=== PATIENT | male | born 1980 | race Caucasian/White ===

== ENCOUNTER 2017-01-26 17:44 | Emergency (ER) | payer BC ==
[2017-01-26 18:55] VITALS: BP 153/100
--- NOTE | 2017-01-26 19:07 | UC ---
Dental HPI - HPI Summary HPI Summary: 36 y/o male presents to the urgent care c/o dental pain for the past 4 days. Pains is 9/10 now. He took Ibuprofen 400mg PO this morning with some relief. He states his RT upper jaw is swollen. He couldn't make an appt with his dentist today. He thinks he has a broken molar in his upper jaw. He has Hx of herniated disc on L1-L5 on Pain medication. Pt denies SOB, trismus, chest pain, abdominal pain, N/V/D. r - History of Current Complaint Chief Complaint: UCDentalProblem Stated Complaint: TOOTH COMPLAINT Time Seen by Provider: 01/26/17 18:57 Hx Obtained From: Patient Onset/Duration: Gradual Onset, Lasting Days - 4 days, Still Present, Worse Since - last night Severity: Severe Pain Intensity: 9 Pain Scale Used: 0-10 Numeric Aggravating Factor(s): Chewing Alleviating Factor(s): OTC Meds - Allergies/Home Medications Allergies/Adverse Reactions: Allergies Allergy/AdvReac Type Severity Reaction Status Date / Time raw onions Allergy See Comment Uncoded 01/26/17 18:55 Home Medications: Home Medications Oxycodone [Xtampza ER] 18 mg PO Q12H 01/26/17 [History Confirmed 01/26/17] oxyCODONE TAB* [Roxycodone TAB 5 mg*] 5 mg PO TID 01/26/17 [History Confirmed ] PMH/Surg Hx/FS Hx/Imm Hx Previously Healthy: Yes Neurological History: Seizures Other Neurological History: DDD - Surgical History Surgical History: Yes Surgery Procedure, Year, and Place: TONSILLECTOMY - Family History Known Family History: Positive: Cardiac Disease, Hypertension - Social History Occupation: Employed Full-time Lives: With Family Alcohol Use: Weekly Alcohol Amount: BEER ONCE A MONTH Substance Use Type: Excessive Caffeine, Prescribed Substance Use Comment - Amount & Last Used: monster drinks, 5 hr energy, sodas, coffee Smoking Status (MU): Current Every Day Smoker Type: Cigarettes Amount Used/How Often: 3-4 CIGS PER DAY Length of Time of Smoking/Using Tobacco: 19 YRS Have You Smoked in the Last Year: Yes When Did the Patient Quit Smoking/Using Tobacco: quit 12/14/15 Household Exposure Type: Cigarettes Review of Systems Constitutional: Negative Skin: Negative Eyes: Negative ENT: Dental Pain, Other - RT side face swelling Respiratory: Negative Cardiovascular: Negative Gastrointestinal: Negative Genitourinary: Negative Motor: Negative Neurovascular: Negative Musculoskeletal: Negative Neurological: Headache Psychological: Negative Is Patient Immunocompromised?: No All Other Systems Reviewed And Are Negative: Yes Physical Exam Triage Information Reviewed: Yes Vital Signs: Initial Vital Signs Temp 97.1 F 01/26/17 18:49 Pulse 59 01/26/17 18:49 Resp 16 01/26/17 18:49 BP 153/100 01/26/17 18:49 Pulse Ox 100 01/26/17 18:49 - Additional Comments Vital Signs Reviewed: Yes General: well developed. well nourished male sitting in the examining table w/o any apparent distress Eyes: Positive: Conjunctiva Clear - PERRLA, EOMI, fundi grossly normal ENT: Positive: Normal ENT inspection, Hearing grossly normal, Pharyngeal erythema, TMs normal, Uvula midline. Negative: Tonsillar swelling, Tonsillar exudate, Trismus Dental: Positive: Percussion Tenderness @ - molar 2 with cross decay and fractured. Positive B/L anterior Cervical Lymphadenopathy. No trismus. NO TMJ tenderness Neck: Positive: Supple, Nontender Respiratory: Positive: Chest non-tender, Lungs clear, Normal breath sounds, No respiratory distress Cardiovascular: Positive: RRR, No Murmur, Pulses Normal, Brisk Capillary Refill Abdomen Description: Positive: Nontender, No Organomegaly, Soft. Negative: CVA Tenderness (R), CVA Tenderness (L) Bowel Sounds: Positive: Present Musculoskeletal: Positive: Strength Intact, ROM Intact, No Edema Neurological Exam: Normal Psychological Exam: Normal Skin Exam: Normal Dental Complaint Course/Dx - Course Course Of Treatment: 36 y/o male presents to the urgent care c/o dental pain for the past 4 days. Pains is 9/10 now. He took Ibuprofen 400mg PO this morning with some relief. He states his RT upper jaw is swollen. He couldn't make an appt with his dentist today. He thinks he has a broken molar in his upper jaw. He has Hx of herniated disc on L1-L5 on Pain medication. Pt denies SOB, trismus , chest pain, abdominal pain, N/V/D. Hx obtained. Pt with a fractured w/ gross decay Molar #2 in the RT upper jaw and sorrounding swelling on examination. Possible dental abscess. Pt given viscous Lidocaine at the clinic to alleviate symptoms. Pt given a toradol IM inj for pain by Nurse. pt tolerated well Im inj and viscous Lidocaine topically and the rest dispense home. Pt felt better and pain decrease. Pt Rx Amoxicillin PO and Naproxen PO for pain. Pt strongly advised to f/u with Dentist as soon as possible further evaluation and treatment. Pt's BP is elevated today advised to decrease salt in diet, monitor BP and f/u with PCP for further management. Pt understood and agreed with plan of care. Left the clinic ambulating. - Differential Dx/Diagnosis Differential Diagnosis/Dx: Dental Abscess, Dental Caries, Fractured Tooth, Odontogenic Pain, Peridontic Disease, Peritonsillar Abcess Provider Diagnoses: 1- Dental abscess aroudn molar #2. 2- Fracture molar #2. 3 - Elevated BP w/o Hx of HTN Discharge - Discharge Plan Condition: Stable Disposition: HOME Prescriptions: Amoxicillin PO (*) [Amoxicillin 875 MG (*)] 875 mg PO BID #20 tab Naproxen [Naproxen DR 500 MG TAB] 500 mg PO Q8HR #30 tab Patient Education Materials: Dental Abscess (ED), Low Sodium Diet (ED) Referrals: Alfonso Linda MD [Medical Doctor] - 1 Day Additional Instructions: 1-Please take full course of antibiotic to avoid resistance. 2- Take Naproxen as instructed after meals to alleviate pain and swelling. 3- F/u with your Dentist or Dental List provided as soon as possible for further treatment. 4- If symptoms do not improve or worsen please return to the urgent care or f/u with your PCP for further evaluation and treatment 5- Your BP is elevated today. please decrease salt in your diet, monitor BP and if it continues to be elevated please f/u with your PCP for further management
[2017-01-26] MEDS ORDERED: Ketorolac INJ* 60 MG/2 ML VIAL IM ONE (19:09)
[2017-01-26] MEDS ORDERED: Lidocaine 2% VISCOUS* 15 ML UDC SWISH SPIT ONE (19:10)
== END 2017-01-26 19:40 | disposition home or self-care (01) ==
LOC: UCCORT 17:44
DX: K04.7 Periapical abscess without sinus (principal); S02.5XXA Fracture of tooth (traumatic), initial encounter for closed fracture; R03.0 Elevated blood-pressure reading, without diagnosis of hypertension
CPT/HCPCS: 99212; G0463; J1885

== ENCOUNTER 2017-07-19 17:40 | Emergency (ER) | payer BC ==
[2017-07-19 18:01] VITALS: BP 141/93
--- NOTE | 2017-07-19 18:15 | ED ---
Abdominal Pain/Male - HPI Summary HPI Summary: 36 yr old male with the complaint of abdominal pain. Onset 1130 am today with cough and felt his umbilical area protrude outward. Denies NVD. Some hesitancy on trying to start urine stream. No fever, chills vomiting. NO testicular pain. - History of Current Complaint Chief Complaint: UCAbdominalPain Stated Complaint: ABDOMINAL PAIN Time Seen by Provider: 07/19/17 17:53 Pain Intensity: 9 - Allergies/Home Medications Allergies/Adverse Reactions: Allergies Allergy/AdvReac Type Severity Reaction Status Date / Time raw onions Allergy See Comment Uncoded 07/19/17 17:44 PMH/Surg Hx/FS Hx/Imm Hx Endocrine/Hematology History: Denies: Hx Diabetes, Hx Thyroid Disease Cardiovascular History: Reports: Hx Hypertension - unmedicated Denies: Hx Pacemaker/ICD, Other Cardiovascular Problems/Disorders Respiratory History: Reports: Hx Seasonal Allergies - rhinitis d/t pollen, Hx Sleep Apnea - NO CPAP Denies: Hx Asthma, Hx Chronic Obstructive Pulmonary Disease (COPD) GI History: Reports: Hx Gastroesophageal Reflux Disease - esophageal reflux Denies: Hx Ulcer History: Denies: Hx Renal Disease, Other Problems/Disorders Musculoskeletal History: Reports: Hx Arthritis - LOWER BACK, Hx Back Problems - lumbago, Other Musculoskeletal History - PINCHED NERVE IN LOWER BACK Sensory History: Reports: Hx Contacts or Glasses - GLASSES Denies: Hx Hearing Aid Opthamlomology History: Reports: Hx Contacts or Glasses - GLASSES Neurological History: Reports: Hx Seizures - LAST SEIZURE 1 MONTH AGO, Other Neuro Impairments/Disorders - EPILEPSY SINCE AGE 24 Psychiatric History: Denies: Hx Panic Disorder - Surgical History Surgery Procedure, Year, and Place: TONSILLECTOMY Hx Anesthesia Reactions: - N/A Infectious Disease History: No Infectious Disease History: Denies: Hx Clostridium Difficile, Hx Hepatitis, Hx Human Immunodeficiency Virus (HIV), Hx of Known/Suspected MRSA, Hx Shingles, Hx Tuberculosis, Hx Known/ Suspected VRE, Hx Known/Suspected VRSA, History Other Infectious Disease, Traveled Outside the [place] in Last 30 Days - Family History Known Family History: Positive: Cardiac Disease, Hypertension - Social History Alcohol Use: Rare Alcohol Amount: BEER ONCE A MONTH Substance Use Type: Reports: Prescribed Substance Use Comment - Amount & Last Used: monster drinks, 5 hr energy, sodas, coffee Smoking Status (MU): Heavy Every Day Tobacco Smoker Type: Cigarettes Amount Used/How Often: 1/2ppd Length of Time of Smoking/Using Tobacco: 19 YRS Have You Smoked in the Last Year: Yes Review of Systems Constitutional: Negative Positive: Other - abdominal pain All Other Systems Reviewed And Are Negative: Yes Physical Exam Triage Information Reviewed: Yes Vital Signs On Initial Exam: Initial Vitals Temp Pulse Resp BP Pulse Ox 97.5 F 79 16 141/93 99 07/19/17 17:43 07/19/17 17:43 07/19/17 17:43 07/19/17 17:43 07/19/17 17:43 Vital Signs Reviewed: Yes Appearance: Positive: Well-Appearing, No Pain Distress Skin: Positive: Warm, Skin Color Reflects Adequate Perfusion Head/Face: Positive: Normal Head/Face Inspection Eyes: Positive: EOMI ENT: Positive: Normal ENT inspection Neck: Positive: Nontender Respiratory/Lung Sounds: Positive: Clear to Auscultation, Breath Sounds Present Cardiovascular: Positive: RRR. Negative: Murmur Abdomen Description: Positive: Other: - there is an umbilical hernia, tender and not reproducible that is likely the cause of his continued pain. Diagnostics - Vital Signs Vital Signs Temp Pulse Resp BP Pulse Ox 07/19/17 17:43 97.5 F 79 16 141/93 99 - Laboratory Lab Statement: Any lab studies that have been ordered have been reviewed, and results considered in the medical decision making process. Abdominal Pain Fem Course/Dx - Course Course Of Treatment: 36 yr old male with umbilical hernia at this point that is not reducible. I have called the ER at [place] where the patient wants to go, and discussed with Osorio Damon NP in the ER at [place]. - Diagnoses Provider Diagnoses: Umbilical hernia, incarcerated, Hypertension Discharge - Sign-Out/Discharge Documenting (check all that apply): Discharge/Admit/Transfer - Discharge Plan Condition: Good Disposition: TRANS HIGHER LVL OF CARE FAC Patient Education Materials: Hypertension (ED), Umbilical Hernia (ED), Acute Abdominal Pain (DC) Referrals: Alfonso Linda MD [Primary Care Provider] - 1 Day Additional Instructions: You need to go to the ER now for your abdominal pain. You likley have a piece of bowel stuck in an abdominal wall hernia. Do not delay going. You have declined ambulance transport. - Billing Disposition and Condition Condition: GOOD Disposition: Trans Higher Lvl of Care Fac
== END 2017-07-19 18:18 | disposition short-term general hospital (02) ==
LOC: UCCORT 17:40
DX: K42.0 Umbilical hernia with obstruction, without gangrene (principal); I10 Essential (primary) hypertension; G40.909 Epilepsy, unspecified, not intractable, without status epilepticus; K21.9 Gastro-esophageal reflux disease without esophagitis; Z91.018 Allergy to other foods; F17.210 Nicotine dependence, cigarettes, uncomplicated; Z86.69 Personal history of other diseases of the nervous system and sense organs
CPT/HCPCS: 99212; G0463

== ENCOUNTER 2017-08-09 07:01 | Emergency (ER) | payer BC ==
--- OUTSIDE RECORDS SUMMARY | 2017-08-09 07:10 | XMS REPORT ---
:1980 External Reference #:[id number] Author Organization [employer] Address [address] [place] [address] Phone [phone] Care Team Providers Name Role Phone Alfonso Linda III, MD Primary Care Physician Unavailable Payers Type Date Identification Numbers Payment Provider Subscriber Commercial Effective: Policy Number: [id number] [employer] Jay Guerrero 2006 Medicaid IV Expires: 2015 PayID: [id number] [address] [address] [place] [address] Medigap Part B Policy Number: [id number] [employer] Jay Guerrero IV PayID: [id number] [address] [address] [place] [address] Problems Date Description Provider Status Onset: 08/16/2007 Epilepsy Ada Chadwick M.D. Active Onset: 08/16/2007 Allergic rhinitis due to pollen Ada Chadwick M.D. Active Onset: 02/14/2013 Low back pain Alfonso Linda M.D. Active Onset: 02/14/2013 Gastroesophageal reflux disease Alfonso Linda M.D. Active Onset: 07/30/2017 Complex partial epileptic seizure Justin Kim M.D. 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 Zonisamide 03/14 Active Capsules 50mg 60cap 1 capsule s by anthony Kim M.D. twice daily (Take with 1- 100 MG Zonisamid e bid for a total of 250 MG Daily) Levetiracetam Active Tablets 500mg 30tab 1 tab by / s anthony Kim M.D. every day Xtampza ER Active C12a 18mg once Gibson, / daily Champ, DO Oxycodone HCL Active Tablets 5mg three Gibson, / times a Champ, DO day as needed for back pain. Hydrocodone 12/23 Hx Tablets 7.5-300mg 12tab 1 tablet Alfonso Bradshaw Bitartrate/Aceta s by anthony Linda M.D. minophen - tid 03/19 Levetiracetam 08/10 Hx Solution 500mg/5ML 100ml 5 Bonnie Napoles millilite Herbert, - rs by Alex 01/15 daily as directed Zonisamide 08/10 Hx Solution 100mg 100ml 200mg by Bonnie Napoles mouth Herbert, - every MDustin 01/15 night at bedtime Nicorette 08/10 Hx Gum 2mg 100un chew 1 327.23 Alfonso Bradshaw its piece up Alex Linda - to every 03/19- hours, max 24 pieces/da y Percocet 08/15 Hx Tablets 10-325mg 120ta 1 tab po Thananart, bs q4-6h prn Alex Caballero - 02/14 Topamax Hx Tablets 100mg 180ta 1 tab PO Thananart, bs bid Alex Caballero - 02/14 Ibuprofen Hx Tablets 600mg 360ta 1 PO tid Unknown /0000 bs prn - 02/08 Hydrocodone/Apap Hx Tablets 5/500 90tab 1 Q 4 Unknown /0000 s Hours prn - Pain 02/14 Naproxen Hx Tablets 250mg 60tab take 1-2 Unknown /0000 s tab po - q12 hours 06/08 prn pain /2013 and inflmmati on Meloxicam Hx Tablets 7.5mg 30tab 1 by Unknown /0000 s mouth - every day 07/19 Tramadol HCL Hx Tablets 50mg 50tab 1 tab po Unknown /0000 s q 6-8h as - needed 11/27 Cyclobenzaprine Hx Tablets 10mg 30tab one by Unknown HCL /0000 s mouth - three 08/28 times day as needed spasm Hydrocodone Hx Tablets 7.5 14tab 1 tablet Unknown Bitartrate/Aceta /0000 s by mouth minophen - tid 12/23 Fluticasone Hx Suspension 50mcg/Act 16uni 2 sprays Unknown Propionate /0000 ts each - nostril 07/11 daily needed Ketorolac Hx Tablets 10mg Unknown Tromethamine / - 03/19 Prednisone Hx Tablets 20mg Unknown /0000 - 03/19 Sulfamethoxazole Hx Tablets 800-160mg Unknown /Trimethoprim DS /0000 - 03/19 Alpha-Lipoic Hx Capsules 300mg daily Unknown Acid /0000 - 07/29 [facility] Men Hx daily Unknown Sport /0000 - 07/29 Immunizations CPT Code Status Date Vaccine Lot # [id number] Given 11/29/2015 Pneumonia Vaccine [id number] Given 11/29/2015 Influenza Virus Vaccine, Quadrivalent, Split [id number] Virus, [place] [id number] Given 05/17/2013 Tdap - Tetanus/Diptheria/Acellular Pertussis [id number] Given 03/21/2013 Fluvirin Im 3Yrs And Older [id number] Vital Signs Date Vital Result Comment 07/30/2017 Height 66 inches 5'6" Weight 205.00 lb Heart Rate 76 /min BP Systolic Sitting 132 mmHg BP Diastolic Sitting 86 mmHg Respiratory Rate 16 /min BMI (Body Mass Index) 33.1 kg/m2 03/20/2016 Height 66 inches 5'6" Weight 200.00 lb per patient Heart Rate 68 /min BP Systolic Sitting 114 mmHg BP Diastolic Sitting 60 mmHg Respiratory Rate 16 /min O2 % BldC Oximetry 99 % BMI (Body Mass Index) 32.3 kg/m2 11/29/2015 Height 66 inches 5'6" Weight 204.25 lb Heart Rate 72 /min BP Systolic Sitting 120 mmHg BP Diastolic Sitting 80 mmHg Body Temperature 97.2 F O2 % BldC Oximetry 98 % BMI (Body Mass Index) 33.0 kg/m2 07/04/2015 Height 66 inches 5'6" Weight 200.00 lb Heart Rate 68 /min BP Systolic Sitting 118 mmHg BP Diastolic Sitting 82 mmHg Respiratory Rate 14 /min BMI (Body Mass Index) 32.3 kg/m2 07/19/2014 Height 66 inches 5'6" Weight 201.00 lb Heart Rate 78 /min BP Systolic Sitting 110 mmHg BP Diastolic Sitting 70 mmHg Respiratory Rate 16 /min BMI (Body Mass Index) 32.4 kg/m2 01/16/2014 Height 66 inches 5'6" Weight 201.12 lb Heart Rate 60 /min BP Systolic Sitting 118 mmHg BP Diastolic Sitting 80 mmHg Respiratory Rate 16 /min BMI (Body Mass Index) 32.5 kg/m2 08/28/2013 Weight 197.00 lb Heart Rate 82 /min BP Systolic Sitting 130 mmHg BP Diastolic Sitting 82 mmHg 08/10/2013 Height 66.25 inches 5'6.25" Weight 197.50 lb Heart Rate 76 /min BP Systolic Sitting 144 mmHg BP Diastolic Sitting 80 mmHg Body Temperature 97.4 F BMI (Body Mass Index) 31.6 kg/m2 07/06/2013 Height 66 inches 5'6" Weight 198.00 lb Heart Rate 72 /min BP Systolic Sitting 136 mmHg BP Diastolic Sitting 90 mmHg Respiratory Rate 16 /min BMI (Body Mass Index) 32.0 kg/m2 05/17/2013 Weight 200.50 lb Heart Rate 86 /min BP Systolic Sitting 138 mmHg BP Diastolic Sitting 88 mmHg Body Temperature 96.8 F 03/03/2013 Heart Rate 72 /min BP Systolic Sitting 130 mmHg BP Diastolic Sitting 70 mmHg Respiratory Rate 16 /min 02/14/2013 Height 65.75 inches 5'5.75" Weight 199.50 lb Heart Rate 82 /min BP Systolic Sitting 152 mmHg BP Diastolic Sitting 90 mmHg BMI (Body Mass Index) 32.4 kg/m2 08/16/2007 Weight 145.00 lb Heart Rate 80 /min BP Systolic Sitting 130 mmHg BP Diastolic Sitting 80 mmHg Results Test Date Test Result H/L Range Note Lipid Profile (Trig/Chol/HDL) 11/22/2015 Triglycerides 161 mg/dL 1 Cholesterol 198 mg/dL 2 HDL Cholesterol 32.4 mg/dL 3 LDL Cholesterol 133 mg/dL 4 Laboratory test finding 11/22/2015 Glucose 92 mg/dL 70-100 Laboratory test finding 12/06/2014 Levetiracetam (Keppra) 7.2 g/mL 5 Comp Metabolic Panel 03/21/2013 Sodium 138 mmol/L 133-145 Potassium 3.9 mmol/L 3.7-5.6 Chloride 105 mmol/L 101-111 Co2 Carbon Dioxide 26 mmol/L 22-32 Anion Gap 7 mmol/L 2-11 Glucose 86 mg/dL 70-100 Blood Urea Nitrogen 13 mg/dL 6-24 Creatinine 1.11 mg/dL 0.67-1.17 BUN/Creatinine Ratio 11.7 8-20 Calcium 9.7 mg/dL 8.6-10.3 Total Protein 6.8 g/dL 6.4-8.9 Albumin 4.7 g/dL 3.2-5.2 Globulin 2.1 g/dL 2-4 Albumin/Globulin Ratio 2.2 1-3 Total Bilirubin 0.50 mg/dL 0.2-1.0 Alkaline Phosphatase 56 U/L 34-104 Alt 90 U/L High 7-52 Ast 33 U/L 13-39 Egfr Non- 76.3 >60 Egfr 98.1 >60 6 1 Desirable <150 Borderline high 150-199 High 200-499 Very High >500 2 Desirable <200 Borderline high 200-239 High >239 3 Low <40 Desirable: 40-60 High: >60 4 Desirable: <100 mg/dL Near Optimal: 100-129 mg/dL Borderline High: 130-159 mg/dL High: 160-189 mg/dL Very High: >189 mg/dL 5 REFERENCE VALUE 12.0 - 46.0 Test Performed by: [address], [place] [address] Second Worker: Leisa Pond, Ph.D. 6 Because ethnic data is not always readily available, this report includes an eGFR for both -Americans and non- Americans. The National Kidney Disease Education Program (NKDEP) does not endorse the use of the MDRD equation for patients that are not between the ages of 18 and 70, are , have extremes of body size, muscle mass, or nutritional status, or are non- or non-. According to the National Kidney Foundation, irrespective of diagnosis, the stage of the disease is based on the level of kidney function: Stage Description GFR(mL/min/1.73 m(2)) 1 Kidney damage with normal or decreased GFR 90 2 Kidney damage with mild decrease in GFR 60-89 3 Moderate decrease in GFR 30-59 4 Severe decrease in GFR 15-29 5 Kidney failure <15 (or dialysis) Procedures Date CPT Code Description Status Comment 04/12/2015 Diabetic Retinal Eye Exam Completed Document: 04/12/15 - Consult Ophthalmology 05/24/2013 11569 Polysomnography Sleep Staging Completed 4+ Parameters W/Cpap 05/02/2013 78797 Polysomnography Sleep Staging Completed 4+ Parameters Encounters Type Date Location Provider CPT E/M Dx Office Visit 03/20/2016 [place]/Celestino Godinez, 43023 G40.209 11:45a Neurologic Serv Eloise Johnson [facility] Z79.899 Office Visit 11/29/2015 10:00a [facility] Internal Medicine Alfonso Linda, 16394 Z00.00 - Rajeev oJhnson G40.909 M54.5 G47.33 M25.521 F17.210 Z23 Office Visit 07/04/2015 3:15p [facility] Godinez, 51661 G40.209 Services Of Margaret Johnson Office Visit 07/19/2014 9:00a [facility] Godinez, 42596 345.40 Services Of Margaret Johnson Office Visit 01/16/2014 8:45a [facility] Nicole M. Stackman, 00035 345.40 Services Of Spindle Sander M.D. Office Visit 08/28/2013 1:45p [facility], 76497 784.8 [facility] 08/10/2013 2:20p [facility] Alfonso Linda, 19947 V72.81 - Allyson Johnson 327.23 345.90 724.2 Office Visit 07/06/2013 8:45a [place] [facility] Bonnie Godinez, 79940 345.90 Services Of Spindle Sander M.D. 784.0 Office Visit 06/08/2013 3:47p [facility] Byron Cannon, 70208 327.23 M.DMelvina Office Visit 05/17/2013 9:00a [facility] Alfonso Linda, 41378 345.90 - Allyson Johnson 724.2 780.59 796.2 V77.91 V77.1 V06.1 Office Visit 03/23/2013 12:20p [facility] Byron Cannon, 68965 780.59 M.DMelvina 786.09 780.79 Office Visit 03/03/2013 10:00a [place] [facility] Bonnie Godinez, 46979 345.40 Services Of Spindle Sander M.D. 346.91 Office Visit 02/14/2013 9:20a [facility] Internal Medicine Alfonso Linda, 94150 345.90 - Allyson Johnson 724.2 796.2 780.79 530.81 Office Visit 08/16/2007 9:00a DO Not Use Spindle Sander AT [facility], 52141 719.46 [facility] Alex Plan of Care Future Appointment(s):08/05/2018 2:30 pm - Justin Kim M.D. at [place] [facility]08/20/2017 9:00 am - Harinder Betts MD at [facility]07/30/2017 - Justin Kim M.D.G40.209 Local- rel symptc epi w cmplx prt seiz,not ntrct,w/o stat epiFollow up:Follow up in 1 year in [place]
--- OUTSIDE RECORDS SUMMARY | 2017-08-09 07:10 | XMS REPORT ---
:1980 External Reference #:[id number] Author Organization [facility] Address [address], [address] [place] [address] Phone [phone] Care Team Providers Name Role Phone Alfonso Linda III, MD Care Team Information Physical Optics Teacher Unavailable Alfonso Linda III, MD Primary Care Physician Unavailable Payers Type Date Identification Numbers Payment Provider Subscriber Commercial Policy Number: [id number] [employer] Jay Guerrero PayID: [id number] [place] [address] Problems Date Description Provider Status Onset: 07/21/2017 Umbilical hernia Navin Matthews MD,FACS Active Family History Date Family Member(s) Problem(s) Comments Mother Lupus Mother Heart Disease Mother Arthritis Mother back problems Social History Type Date Description Comments Marital Status 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 Cigarette Use Current Cigarette Smoker 1 Pack smoking for 22 years Daily ETOH Use Rarely consumes alcohol Smoking Patient is a current smoker, smokes every day Recreational Drug Use Former Drug User Daily Caffeine Patient consumes minimal amounts of caffeine Allergies, Adverse Reactions, Alerts Date Description Reaction Status Severity Comments 07/21/2017 NKDA active Medications Medication Date Status Form Strength Qnty SIG Indications Ordering Provider Oxycodone HCL Active Tablets 5mg 3 times Gibson, daily MD Champ Xtampza ER Active C12a 18mg once Gibson, daily MD Champ Zonisamide Active Capsules 100mg once Julio, daily MD Justin Zonisamide Active Capsules 50mg 180caps 1 tab by Stackman, 00 mouth MD Bonnie every day Keppra Active Tablets 500mg one tab Unknown 00 daily Levetiracetam 00/00/00 Hx Tablets 500mg Sera Kim 07/22/19 MD 18 Vital Signs Date Vital Result Comment 08/02/2017 BP Systolic 148 mmHg BP Diastolic 99 mmHg Body Temperature 98.3 F Heart Rate 76 /min Respiratory Rate 18 /min Height 66 inches 5'6" Weight 205.00 lb BMI (Body Mass Index) 33.1 kg/m2 BSA (Body Surface Area) 2.02 m2 [place] body weight in kilograms 64 O2 % BldC Oximetry 99 % 07/21/2017 BP Systolic 127 mmHg BP Diastolic 87 mmHg Body Temperature 97.4 F Heart Rate 66 /min Respiratory Rate 17 /min Height 66 inches 5'6" Weight 207.00 lb BMI (Body Mass Index) 33.4 kg/m2 BSA (Body Surface Area) 2.03 m2 [place] body weight in kilograms 64 O2 % BldC Oximetry 96 % Results Description No Information Procedures Description No Information Encounters Type Date Location Provider CPT E/M Dx Office Visit 07/21/2017 8:30a Surgical Office Navin Matthews MD,FACS [id number] K42.9 Plan of Care 08/02/2017 - Navin Matthews MD,[id number] Umbilical hernia without obstruction or gangreneComments:now s/p open repair with mesh placement. healing well, no hernia recurrence, RTC prn. i re-iterated for him the importance to quit smoking.
--- OUTSIDE RECORDS SUMMARY | 2017-08-09 07:10 | XMS REPORT ---
:1980 External Reference #:[id number] [facility] Address [address], [address] [place] [address] Phone [phone] Care Team Providers Name Role Phone Alfonso Linda III, MD Care Team Information Endbander Unavailable Alfonso Linda III, MD Primary Care Physician Unavailable Payers Type Date Identification Numbers Payment Provider Subscriber Commercial Policy Number: [id number] [employer] Jay Guerrero PayID: [id number] [place] [address] Problems Date Description Provider Status Onset: 07/21/2017 Umbilical hernia Navin Matthews MD,FACS Active Family History Date Family Member(s) Problem(s) Comments Mother Lupus Mother Heart Disease Mother Arthritis Mother back problems Social History Type Date Description Comments 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 Cigarette Use Current Cigarette Smoker 1 Pack [...] 00 daily Levetiracetam 00/00/00 Hx Tablets 500mg Julio Maurice Justin 07/22/19 MD 18 Vital Signs Date Vital Result Comment 07/21/2017 BP Systolic 127 mmHg BP Diastolic 87 mmHg Body Temperature 97.4 F Heart Rate 66 /min Respiratory Rate 17 /min Height 66 inches 5'6" Weight 207.00 lb BMI (Body Mass Index) 33.4 kg/m2 BSA (Body Surface Area) 2.03 m2 [place] body weight in kilograms 64 O2 % BldC Oximetry 96 % Results Description No Information Procedures Description No Information Plan of Care 07/21/2017 - Navin Matthews MD,[id number] Umbilical hernia without obstruction or gangreneComments:reducible umbilical hernia. i discussed with him the options of therapy. i also gave him the option to quit smoking before we fix the hernia as smoking would be associated with delayed wound healing and increased chance of hernia recurrence. he would like his hernia fixed and he will seriously consider to stop smoking.Risks and benefits of the procedure were discussed with the patient. Risks include,but are not limited to, infection , bleeding, hernia recurrence, mesh infection, organ or tissue damage or malfunction, allergy, and potentially . Patient understood and agreed to the procedure.hispain management will be treated according to his pain specialist, as he has a contract with him. patient will get in touch with their office.
[2017-08-09 07:17] VITALS: BP 162/94
[2017-08-09] MEDS ORDERED: Amoxicillin/Clavulanate TAB* 875 MG PO ONE (07:38)
--- NOTE | 2017-08-09 07:39 | ED ---
Throat Pain/Nasal Congestion - HPI Summary HPI Summary: 36 yr male with dental pain. Onset of pain was three days ago. Pain is in the left lower posterior molar. Pain is moderate. He has some associated facial swelling over the angle of mandible left side. - History of Current Complaint Chief Complaint: UCDentalProblem Time Seen by Provider: 08/09/17 07:18 - Allergies/Home Medications Allergies/Adverse Reactions: Allergies Allergy/AdvReac Type Severity Reaction Status Date / Time raw onions Allergy See Comment Uncoded 08/09/17 07:10 Home Medications: Home Medications Ibuprofen TAB* [Advil TAB*] 600 mg PO Q6H PRN 08/09/17 [History Confirmed ] PMH/Surg Hx/FS Hx/Imm Hx Endocrine/Hematology History: Denies: Hx Diabetes, Hx Thyroid Disease Cardiovascular History: Denies: Hx Hypertension, Hx Pacemaker/ICD, Other Cardiovascular Problems/ Disorders Respiratory History: Reports: Hx Seasonal Allergies - rhinitis d/t pollen, Hx Sleep Apnea - NO CPAP Denies: Hx Asthma, Hx Chronic Obstructive Pulmonary Disease (COPD) GI History: Reports: Hx Gastroesophageal Reflux Disease - esophageal reflux Denies: Hx Ulcer History: Denies: Hx Renal Disease, Other Problems/Disorders Musculoskeletal History: Reports: Hx Arthritis - LOWER BACK, Hx Back Problems - lumbago, Other Musculoskeletal History - PINCHED NERVE IN LOWER BACK Sensory History: Reports: Hx Contacts or Glasses - GLASSES Denies: Hx Hearing Aid Opthamlomology History: Reports: Hx Contacts or Glasses - GLASSES Neurological History: Reports: Hx Seizures - LAST SEIZURE 1 MONTH AGO, Other Neuro Impairments/Disorders - EPILEPSY SINCE AGE 24 Psychiatric History: Denies: Hx Panic Disorder - Surgical History Surgery Procedure, Year, and Place: TONSILLECTOMY. hernia 07/2017 Hx Anesthesia Reactions: - N/A Infectious Disease History: No Infectious Disease History: Denies: Hx Clostridium Difficile, Hx Hepatitis, Hx Human Immunodeficiency Virus (HIV), Hx of Known/Suspected MRSA, Hx Shingles, Hx Tuberculosis, Hx Known/ Suspected VRE, Hx Known/Suspected VRSA, History Other Infectious Disease, Traveled Outside the [place] in Last 30 Days - Family History Known Family History: Positive: Cardiac Disease, Hypertension - Social History Alcohol Use: Weekly Alcohol Amount: BEER ONCE A MONTH Substance Use Type: Reports: Excessive Caffeine, Prescribed Substance Use Comment - Amount & Last Used: monster drinks, 5 hr energy, sodas, coffee Smoking Status (MU): Heavy Every Day Tobacco Smoker Type: Cigarettes Amount Used/How Often: 10 CIGS PER DAY Length of Time of Smoking/Using Tobacco: 19 YRS Have You Smoked in the Last Year: Yes Review of Systems Constitutional: Negative Positive: Dental Pain All Other Systems Reviewed And Are Negative: Yes Physical Exam Triage Information Reviewed: Yes Vital Signs On Initial Exam: Initial Vitals Temp Pulse Resp BP Pulse Ox 98.3 F 78 16 162/94 98 08/09/17 07:11 08/09/17 07:11 08/09/17 07:11 08/09/17 07:11 08/09/17 07:11 Vital Signs Reviewed: Yes Appearance: Positive: Well-Appearing, No Pain Distress Skin: Positive: Warm, Skin Color Reflects Adequate Perfusion Head/Face: Positive: Normal Head/Face Inspection Eyes: Positive: EOMI ENT: Positive: Dental tenderness - left mandibular posterior molar., Other - some swelling over the left angle of mandible in area where the tooth is infected with gingival cellulitis. Dental: Positive: Cellulitis @ - gingival cellulitis left lower posterior molar. Negative: Cervical Lymphadenopathy Neck: Positive: Supple Respiratory/Lung Sounds: Positive: Clear to Auscultation, Breath Sounds Present Cardiovascular: Positive: RRR. Negative: Murmur Abdomen Description: Negative: Distended Musculoskeletal: Positive: Strength/ROM Intact Neurological: Positive: Sensory/Motor Intact, Alert, Oriented to Person Place, Time, CN Intact II-III Psychiatric: Positive: Normal - Arnold Coma Scale Best Eye Response: 4 - Spontaneous Best Motor Response: 6 - Obeys Commands Best Verbal Response: 5 - Oriented Coma Scale Total: 15 Diagnostics - Vital Signs Vital Signs Temp Pulse Resp BP Pulse Ox 08/09/17 07:11 98.3 F 78 16 162/94 98 - Laboratory Lab Statement: Any lab studies that have been ordered have been reviewed, and results considered in the medical decision making process. EENT Course/Dx - Course Course Of Treatment: 36 yr old with dental infection, and mild facial swellng. Augmentin. IF worsens go to the ER. He will follow up with PMD for BP. He has [facility] for follow up already. - Diagnoses Provider Diagnoses: Dental abscess, Hypertension Discharge - Sign-Out/Discharge Documenting (check all that apply): Discharge/Admit/Transfer - Discharge Plan Condition: Good Disposition: HOME Prescriptions: Amoxicillin/Clavulanate TAB* [Augmentin TAB 875*] 875 mg PO BID #20 tab Patient Education Materials: Toothache (ED), Hypertension (ED) Referrals: Alfonso Linda MD [Primary Care Provider] - 2 Days - Billing Disposition and Condition Condition: GOOD Disposition: Home
== END 2017-08-09 07:42 | disposition home or self-care (01) ==
LOC: UCCORT 07:01
DX: K04.7 Periapical abscess without sinus (principal); I10 Essential (primary) hypertension; Z91.018 Allergy to other foods
CPT/HCPCS: 99212; A9270-GY; G0463

== ENCOUNTER 2018-07-13 17:42 | Emergency (ER) | payer BC ==
--- OUTSIDE RECORDS SUMMARY | 2018-07-13 17:56 | XMS REPORT | Continuity of Care Document ---
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 Alfonso Linda III, MD Primary Care Physician Unavailable Payers Date Identification Numbers Payment Provider Subscriber Effective: 2018 Policy Number: [id number] HANH GREENWOOD [facility] Jay Guerrero PayID: [id number] [address] [place] [address] Effective: 2015 Policy Number: [id number] [facility] Jay Guerrero Expires: 2018 PayID: [id number] [address] [id number] [place] [id number] Advance Directives Description No Information Available Problems Description No Information Family History Date Family Member(s) Observation Comments Father 58 Mother due to Heart Disease () Children 2 Siblings 1 Grandchildren None Social History Type Date Description Comments Sex Unknown Marital Status Occupation [employer] Cigarette Use Former Cigarette Smoker ETOH Use Rarely consumes alcohol Tobacco Use Start: Unknown Patient is a current smoker, smokes every day Tobacco Use Start: Unknown Smoking Status Reviewed: 06/17/18 Allergies, Adverse Reactions, Alerts Description No Known Drug Allergies Medications Active Medications SIG Qnty Indications Ordering Provider Date Oxycodone HCL si by mouth 90tabs Champ Gibson DO, 07/28/2016 5mg every 6 to 8 MPH Tablets hours as directed chronic pain patient Xtampza ER take 1 tablet by 60units Champ Gibson DO, 02/21/2016 18mg C12a mouth every 12 MPH hours as directed chronic pain. Keppra 1 by mouth daily Unknown 500mg Tablets Zonisamide 1 by mouth every Unknown 50mg morning along Capsules with 100 mg Zonisamide 2 by mouth every Unknown 100mg morning along Capsules with the 50 mg Lisinopril 1 by mouth every Unknown 5mg day Tablets History Medications Xtampza ER take one by mouth 60units Champ Gibson DO, 01/08/2016 - 13.5mg every 12 hours as MPH 02/21/2016 C12a directed chronic pain. Morphine Sulfate ER si by mouth 30tabs Champ Gibson DO, 12/30/2015 - every 12 hours as MPH 01/08/2016 15mg Tablets ER directed chronic pain patient new medication. Hydrocodone-Acetamin take one by mouth Unknown - ophen every 8 hours as 12/30/2015 7.5-325mg directed chronic Tablets pain. Penicillin sI PO bid Unknown - Tablets 09/07/2017 Colchicine 1 by mouth twice Unknown - 0.6mg daily 05/10/2018 Capsules Immunizations Description No Information Available Vital Signs Date Vital Result Comment 06/17/2018 1:01pm BP Systolic 128 mmHg BP Diastolic 86 mmHg Heart Rate 84 /min Respiratory Rate 20 /min Height 66 inches 5'6" Weight 205.00 lb Pain Level 7 Pain at this time. Pain Level With Medicine 7 on average with meds Pain Level Without Medicine 9 11/17 without meds BMI (Body Mass Index) 33.1 kg/m2 05/10/2018 3:54pm BP Systolic 136 mmHg BP Diastolic 82 mmHg Heart Rate 84 /min Respiratory Rate 20 /min Height 66 inches 5'6" Weight 207.00 lb Pain Level 7 Pain at this time. Pain Level With Medicine 6 on average with meds Pain Level Without Medicine 10 11/17 without meds BMI (Body Mass Index) 33.4 kg/m2 04/11/2018 3:59pm BP Systolic 126 mmHg BP Diastolic 78 mmHg Heart Rate 74 /min Respiratory Rate 20 /min Height 66 inches 5'6" Weight 207.00 lb Pain Level 7 Pain at this time. Pain Level With Medicine 6 on average with meds Pain Level Without Medicine 10 11/17 without meds BMI (Body Mass Index) 33.4 kg/m2 03/10/2018 9:08am BP Systolic 132 mmHg BP Diastolic 84 mmHg Heart Rate 80 /min Respiratory Rate 20 /min Height 66 inches 5'6" Weight 206.00 lb Pain Level 7 Pain at this time. Pain Level With Medicine 6 on average with meds Pain Level Without Medicine 10 11/17 without meds BMI (Body Mass Index) 33.2 kg/m2 02/11/2018 1:29pm BP Systolic 128 mmHg BP Diastolic 78 mmHg Heart Rate 74 /min Respiratory Rate 20 /min Height 66 inches 5'6" Weight 210.00 lb Pain Level 8 Pain at this time. Pain Level With Medicine 7 on average with meds Pain Level Without Medicine 10 11/17 without meds BMI (Body Mass Index) 33.9 kg/m2 01/07/2018 1:29pm BP Systolic 128 mmHg BP Diastolic 82 mmHg Heart Rate 84 /min Respiratory Rate 20 /min Height 66 inches 5'6" Weight 210.00 lb Pain Level 7 Pain at this time. Pain Level With Medicine 6 on average with meds Pain Level Without Medicine 10 11/17 without meds BMI (Body Mass Index) 33.9 kg/m2 12/03/2017 2:27pm BP Systolic 122 mmHg BP Diastolic 78 mmHg Heart Rate 76 /min Respiratory Rate 20 /min Height 66 inches 5'6" Weight 210.00 lb Pain Level 8 Pain at this time. Pain Level With Medicine 7 on average with meds Pain Level Without Medicine 11/17 without meds BMI (Body Mass Index) 33.9 kg/m2 2017 1:17pm BP Systolic 132 mmHg BP Diastolic 84 mmHg Heart Rate 86 /min Respiratory Rate 20 /min Height 66 inches 5'6" Weight 207.00 lb Pain Level 7 Pain at this time. Pain Level With Medicine 6 on average with meds Pain Level Without Medicine 10 11/17 without meds BMI (Body Mass Index) 33.4 kg/m2 10/08/2017 1:04pm BP Systolic 132 mmHg BP Diastolic 84 mmHg Heart Rate 86 /min Respiratory Rate 20 /min Height 66 inches 5'6" Weight 207.00 lb Pain Level 7 Pain at this time. Pain Level With Medicine 6 on average with meds Pain Level Without Medicine 10 11/17 without meds Pain Level After Procedure 6 BP Systolic Recheck 128 mmHg Pulse: 80 BP Diastolic Recheck 76 mmHg Pulse: 80 BMI (Body Mass Index) 33.4 kg/m2 09/07/2017 2:59pm BP Systolic 126 mmHg BP Diastolic 78 mmHg Heart Rate 72 /min Respiratory Rate 20 /min Height 66 inches 5'6" Weight 207.00 lb Pain Level 8 Pain at this time. Pain Level With Medicine 7 on average with meds Pain Level Without Medicine 10 11/17 without meds BMI (Body Mass Index) 33.4 kg/m2 08/06/2017 1:17pm BP Systolic 140 mmHg BP Diastolic 86 mmHg Heart Rate 84 /min Respiratory Rate 20 /min Height 66 inches 5'6" Weight 206.00 lb Pain Level 7 Pain at this time. Pain Level With Medicine 6 on average with meds Pain Level Without Medicine 10 11/17 without meds BMI (Body Mass Index) 33.2 kg/m2 07/02/2017 1:14pm BP Systolic 128 mmHg BP Diastolic 86 mmHg Heart Rate 84 /min Respiratory Rate 20 /min Height 66 inches 5'6" Weight 206.00 lb Pain Level 8 Pain at this time. Pain Level With Medicine 7 on average with meds Pain Level Without Medicine 10 11/17 without meds BMI (Body Mass Index) 33.2 kg/m2 05/21/2017 1:09pm BP Systolic 140 mmHg BP Diastolic 78 mmHg Heart Rate 80 /min Respiratory Rate 20 /min Height 66 inches 5'6" Weight 206.00 lb Pain Level 8 Pain at this time. Pain Level With Medicine 7 on average with meds Pain Level Without Medicine 10 11/17 without meds Pain Level After Procedure 6 BP Systolic Recheck 144 mmHg Pulse: 80 BP Diastolic Recheck 80 mmHg Pulse: 80 BMI (Body Mass Index) 33.2 kg/m2 04/30/2017 1:19pm BP Systolic 130 mmHg BP Diastolic 78 mmHg Heart Rate 76 /min Respiratory Rate 20 /min Height 66 inches 5'6" Weight 205.00 lb Pain Level 7 Pain at this time. Pain Level With Medicine 6 on average with meds Pain Level Without Medicine 10 11/17 without meds BMI (Body Mass Index) 33.1 kg/m2 03/26/2017 1:00pm BP Systolic 136 mmHg BP Diastolic 82 mmHg Heart Rate 84 /min Respiratory Rate 20 /min Height 66 inches 5'6" Weight 195.00 lb Pain Level 7 Pain at this time. Pain Level With Medicine 6 on average with meds Pain Level Without Medicine 10 11/17 without meds BMI (Body Mass Index) 31.5 kg/m2 02/19/2017 12:57pm BP Systolic 128 mmHg BP Diastolic 78 mmHg Heart Rate 76 /min Respiratory Rate 20 /min Height 66 inches 5'6" Weight 200.00 lb Pain Level 8 Pain at this time. Pain Level With Medicine 7 on average with meds Pain Level Without Medicine 10 11/17 without meds BMI (Body Mass Index) 32.3 kg/m2 01/15/2017 9:36am BP Systolic 126 mmHg BP Diastolic 78 mmHg Heart Rate 76 /min Respiratory Rate 20 /min Height 66 inches 5'6" Weight 200.00 lb Pain Level 7 Pain at this time. Pain Level With Medicine 6 on average with meds Pain Level Without Medicine 10 11/17 without meds BMI (Body Mass Index) 32.3 kg/m2 12/25/2016 10:38am BP Systolic 140 mmHg BP Diastolic 86 mmHg Heart Rate 84 /min Respiratory Rate 20 /min Height 66 inches 5'6" Weight 201.00 lb Pain Level 8 Pain at this time. Pain Level With Medicine 6 on average with meds Pain Level Without Medicine 10 11/17 without meds Pain Level After Procedure 6 BP Systolic Recheck 138 mmHg Pulse: 80 BP Diastolic Recheck 84 mmHg Pulse: 80 BMI (Body Mass Index) 32.4 kg/m2 12/11/2016 12:59pm BP Systolic 138 mmHg BP Diastolic 72 mmHg Heart Rate 80 /min Respiratory Rate 20 /min Height 66 inches 5'6" Weight 201.00 lb Pain Level 8 Pain at this time. Pain Level With Medicine 7 on average with meds Pain Level Without Medicine 10 11/17 without meds BMI (Body Mass Index) 32.4 kg/m2 11/06/2016 1:12pm BP Systolic 138 mmHg BP Diastolic 84 mmHg Heart Rate 80 /min Respiratory Rate 20 /min Height 66 inches 5'6" Weight 204.00 lb Pain Level 7 Pain at this time. Pain Level With Medicine 6 on average with meds Pain Level Without Medicine 10 11/17 without meds BMI (Body Mass Index) 32.9 kg/m2 10/02/2016 10:04am BP Systolic 136 mmHg BP Diastolic 84 mmHg Heart Rate 82 /min Respiratory Rate 18 /min Height 66 inches 5'6" Weight 208.00 lb Pain Level 7 Pain at this time. Pain Level With Medicine 6 on average with meds Pain Level Without Medicine 10 11/17 without meds BMI (Body Mass Index) 33.6 kg/m2 09/04/2016 9:15am BP Systolic 144 mmHg BP Diastolic 86 mmHg Heart Rate 80 /min Respiratory Rate 20 /min Height 66 inches 5'6" Weight 208.00 lb Pain Level 8 Pain at this time. Pain Level With Medicine 7 on average with meds Pain Level Without Medicine 10 11/17 without meds BMI (Body Mass Index) 33.6 kg/m2 07/28/2016 4:01pm BP Systolic 158 mmHg BP Diastolic 92 mmHg Heart Rate 88 /min Respiratory Rate 20 /min Height 66 inches 5'6" Weight 205.00 lb Pain Level 9 Pain at this time. Pain Level With Medicine 8 on average with meds Pain Level Without Medicine 10 11/17 without meds BMI (Body Mass Index) 33.1 kg/m2 06/26/2016 1:20pm BP Systolic 132 mmHg BP Diastolic 84 mmHg Heart Rate 86 /min Respiratory Rate 20 /min Height 66 inches 5'6" Weight 208.00 lb Pain Level 7 Pain at this time. Pain Level With Medicine 6 on average with meds Pain Level Without Medicine 10 11/17 without meds BMI (Body Mass Index) 33.6 kg/m2 05/25/2016 3:55pm BP Systolic 142 mmHg BP Diastolic 78 mmHg Heart Rate 82 /min Respiratory Rate 20 /min Height 66 inches 5'6" Weight 207.00 lb Pain Level 8 Pain at this time. Pain Level With Medicine 7 on average with meds Pain Level Without Medicine 10 11/17 without meds Pain Level After Procedure 6 BP Systolic Recheck 140 mmHg Pulse: 94 BP Diastolic Recheck 86 mmHg Pulse: 94 BMI (Body Mass Index) 33.4 kg/m2 04/24/2016 10:06am BP Systolic 136 mmHg BP Diastolic 82 mmHg Heart Rate 86 /min Respiratory Rate 20 /min Height 66 inches 5'6" Weight 204.00 lb Pain Level 7 Pain at this time. Pain Level With Medicine 7 on average with meds Pain Level Without Medicine 10 11/17 without meds Pain Level After Procedure 3 BP Systolic Recheck 148 mmHg Pulse:94 BP Diastolic Recheck 92 mmHg Pulse:94 BMI (Body Mass Index) 32.9 kg/m2 03/24/2016 4:05pm BP Systolic 158 mmHg BP Diastolic 86 mmHg Heart Rate 94 /min Respiratory Rate 20 /min Height 66 inches 5'6" Weight 202.00 lb Pain Level 9 Pain at this time. Pain Level With Medicine 8 on average with meds Pain Level Without Medicine 10 11/17 without meds BMI (Body Mass Index) 32.6 kg/m2 02/21/2016 10:45am BP Systolic 144 mmHg BP Diastolic 86 mmHg Heart Rate 84 /min Respiratory Rate 20 /min Height 66 inches 5'6" Weight 200.00 lb Pain Level 7 Pain at this time. Pain Level With Medicine 7 on average with meds Pain Level Without Medicine 10 11/17 without meds BMI (Body Mass Index) 32.3 kg/m2 01/24/2016 10:02am BP Systolic 148 mmHg BP Diastolic 86 mmHg Heart Rate 82 /min Respiratory Rate 20 /min Height 66 inches 5'6" Weight 202.00 lb Pain Level 7 Pain at this time. Pain Level With Medicine 7 on average with meds Pain Level Without Medicine 10 11/17 without meds BMI (Body Mass Index) 32.6 kg/m2 01/08/2016 3:44pm BP Systolic 168 mmHg BP Diastolic 84 mmHg Heart Rate 92 /min Respiratory Rate 20 /min Height 66 inches 5'6" Weight 202.00 lb Pain Level 9 Pain at this time. Pain Level With Medicine 9 on average with meds Pain Level Without Medicine 10 11/17 without meds BMI (Body Mass Index) 32.6 kg/m2 12/30/2015 2:01pm BP Systolic 130 mmHg BP Diastolic 76 mmHg Heart Rate 78 /min Respiratory Rate 18 /min Height 66 inches 5'6" Weight 200.00 lb Pain Level 7 Pain at this time. Pain Level Without Medicine 10 11/17 without meds BMI (Body Mass Index) 32.3 kg/m2 Results Description No Information Available Procedures Date Code Description Status 05/10/2018 88456 Therapeutic, Prophylactic Or Diagnostic Injection Subq/Im Completed 04/11/2018 01998 Omt 3-4 Body Regions Completed 04/11/2018 53541 Therapeutic, Prophylactic Or Diagnostic Injection Subq/Im Completed 03/10/2018 23520 Therapeutic, Prophylactic Or Diagnostic Injection Subq/Im Completed 02/11/2018 30998 Therapeutic, Prophylactic Or Diagnostic Injection Subq/Im Completed 01/07/2018 64977 Omt 3-4 Body Regions Completed 01/07/2018 78317 Therapeutic, Prophylactic Or Diagnostic Injection Subq/Im Completed 12/03/2017 26149 Omt 3-4 Body Regions Completed 12/03/2017 80610 Therapeutic, Prophylactic Or Diagnostic Injection Subq/Im Completed 2017 51091 Therapeutic, Prophylactic Or Diagnostic Injection Subq/Im Completed 10/08/2017 86975 Injection For Nerve Block, Other Peripheral Nerve Or Completed Branch 09/07/2017 61898 Therapeutic, Prophylactic Or Diagnostic Injection Subq/Im Completed 07/02/2017 95053 Therapeutic, Prophylactic Or Diagnostic Injection Subq/Im Completed 07/02/2017 12472 Omt 3-4 Body Regions Completed 05/21/2017 47245 Omt 3-4 Body Regions Completed 05/21/201785084 Arthrocentesis/Aspiration/Inj Of Major Joint Or Bursa W/ Completed Ultra 05/21/2017 69514 Inject Tendon/Ligament Completed 05/21/201785335 Inject Tendon/Ligament Completed 05/21/2017 29446 Inject Tendon/Ligament Completed 05/21/2017 48173 Inject Tendon/Ligament Completed 04/30/2017 12201 Omt 3-4 Body Regions Completed 03/26/2017 57851 Omt 5-6 Body Regions Completed 03/26/2017 93090 Therapeutic, Prophylactic Or Diagnostic Injection Subq/Im Completed 02/19/2017 18335 Omt 3-4 Body Regions Completed 02/19/2017 60833 Therapeutic, Prophylactic Or Diagnostic Injection Subq/Im Completed 01/15/2017 88614 Therapeutic, Prophylactic Or Diagnostic Injection Subq/Im Completed 01/15/2017 74161 Omt 3-4 Body Regions Completed 12/25/2016 35878 Omt 3-4 Body Regions Completed 12/25/2016 17149 U/S Guidance For Needle Placement Completed 12/25/2016 41360 Injection For Nerve Block, Other Peripheral Nerve Or Completed Branch 12/11/2016 23345 Omt 3-4 Body Regions Completed 12/11/2016 99487 Therapeutic, Prophylactic Or Diagnostic Injection Subq/Im Completed 11/06/2016 88424 Omt 3-4 Body Regions Completed 11/06/2016 31895 Therapeutic, Prophylactic Or Diagnostic Injection Subq/Im Completed 10/02/2016 00340 Omt 1-2 Body Regions Completed 10/02/2016 58510 Therapeutic, Prophylactic Or Diagnostic Injection Subq/Im Completed 09/04/2016 50474 Therapeutic, Prophylactic Or Diagnostic Injection Subq/Im Completed 07/28/2016 94980 Therapeutic, Prophylactic Or Diagnostic Injection Subq/Im Completed 06/26/2016 69811 Injection For Nerve Block, Other Peripheral Nerve Or Completed Branch 06/26/2016 69060 U/S Guidance For Needle Placement Completed 06/26/2016 37927 Therapeutic, Prophylactic Or Diagnostic Injection Subq/Im Completed 06/26/2016 07723 Omt 3-4 Body Regions Completed 05/25/2016 59517 U/S Guidance For Needle Placement Completed 05/25/2016 34445 Injection For Nerve Block, Other Peripheral Nerve Or Completed Branch 04/24/2016 57160 U/S Guidance For Needle Placement Completed 04/24/2016 23231 Injection For Nerve Block, Other Peripheral Nerve Or Completed Branch 04/24/2016 62905 Injection For Nerve Block, Other Peripheral Nerve Or Completed Branch 03/24/2016 68009 Omt 3-4 Body Regions Completed 02/27/2016 22110 Nerve Conduction 11-12 Studies Completed 02/21/2016 10219 Therapeutic, Prophylactic Or Diagnostic Injection Subq/Im Completed 01/24/2016 73174 Omt 3-4 Body Regions Completed 01/24/2016 51970 Therapeutic, Prophylactic Or Diagnostic Injection Subq/Im Completed 01/24/2016 25087 Test Autonomic Nervous System, Sudomotor Completed Encounters Type Date Location Provider Dx Diagnosis Office Visit 05/10/2018 Main Office as Of Champ Gibson DO G89.21 Chronic pain due 3:45p 03/11/13 MPH to trauma M54.2 Cervicalgia M54.6 Pain in thoracic spine M54.5 Low back pain R53.83 Other 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 Office Visit 04/11/2018 4:15p Main Office as Champ Gibson G89.21 Chronic pain due Of 03/11/13 DO, MPH to trauma M54.2 Cervicalgia M99.01 Segmental and somatic dysfunction of cervical region M54.6 Pain in thoracic spine M99.02 Segmental and somatic dysfunction of thoracic region M54.5 Low back pain M99.03 Segmental and somatic dysfunction of lumbar region R53.83 Other fatigue Z79.891 halfway (current) use of opiate analgesic Office Visit 03/10/2018 9:00a Main Office as Champ Gibson G89.21 Chronic pain due Of 03/11/13 DO, MPH to trauma M54.2 Cervicalgia M54.6 Pain in thoracic spine M25.511 Pain in right shoulder M54.5 Low back pain I48.2 Chronic atrial fibrillation I10 Essential (primary) hypertension 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, not intractable, without status epilepticus G47.8 Other sleep disorders Z79.891 halfway (current) use of opiate analgesic R53.83 Other fatigue Office Visit 02/11/2018 1:30p Main Office as Champ Gibson, G89.21 Chronic pain due Of 03/11/13 DO, MPH to trauma M54.2 Cervicalgia M54.6 Pain in thoracic spine M25.511 Pain in right shoulder M25.512 Pain in left shoulder R53.83 Other 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 Office Visit 01/07/2018 2:30p Main Office as Champ Gibson G89.21 Chronic pain due Of 03/11/13 DO, MPH to trauma M54.2 Cervicalgia M99.01 Segmental and somatic dysfunction of cervical region M54.6 Pain in thoracic spine M99.02 Segmental and somatic dysfunction of thoracic region M25.511 Pain in right shoulder M25.512 Pain in left shoulder M99.07 Segmental and somatic dysfunction of upper extremity 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 R53.83 Other fatigue Office Visit 12/03/2017 2:30p Main Office as Champ Gibson, G89.21 Chronic pain due Of 03/11/13 DO, MPH to trauma M54.2 Cervicalgia M99.01 Segmental and somatic dysfunction of cervical region M54.6 Pain in thoracic spine M99.02 Segmental and somatic dysfunction of thoracic region M25.511 Pain in right shoulder M25.512 Pain in left shoulder M99.07 Segmental and somatic dysfunction of upper extremity R53.83 Other 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 Office Visit 2017 1:45p Main Office as Champ Gibson, G89.21 Chronic pain due Of 03/11/13 DO, MPH to trauma M54.2 Cervicalgia M54.5 Low back pain M54.17 Radiculopathy, lumbosacral region M79.1 Myalgia R53.83 Other 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 Office Visit 10/08/2017 1:00p Main Office as Champ Gibson G89.21 Chronic pain due Of 03/11/13 DO, MPH to trauma M54.2 Cervicalgia M79.1 Myalgia M54.5 Low back pain M54.17 Radiculopathy, lumbosacral region Z79.891 halfway (current) use of opiate analgesic Office Visit 09/07/2017 4:00p Main Office as Champ Gibson G89.21 Chronic pain due Of 03/11/13 DO, MPH to trauma M54.5 Low back pain M54.2 Cervicalgia M79.1 Myalgia R53.83 Other 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 Office Visit 08/06/2017 1:00p Main Office as Champ Gibson G89.29 Other chronic Of 03/11/13 DO, MPH pain M54.17 Radiculopathy, lumbosacral region M54.5 Low back pain M54.6 Pain in thoracic spine M54.2 Cervicalgia Z79.891 halfway (current) use of opiate analgesic Office Visit 07/02/2017 1:00p Main Office as Champ Gibson G89.29 Other chronic Of 03/11/13 DO, MPH pain M54.17 Radiculopathy, lumbosacral region M54.5 Low back pain M99.03 Segmental and somatic dysfunction of lumbar region M54.6 Pain in thoracic spine M99.02 Segmental and somatic dysfunction of thoracic region M54.2 Cervicalgia M99.01 Segmental and somatic dysfunction of cervical region Z79.891 halfway (current) use of opiate analgesic R53.83 Other fatigue Office Visit 05/21/2017 1:00p Main Office as Champ Gibson G89.29 Other chronic Of 03/11/13 DO, MPH pain M54.17 Radiculopathy, lumbosacral region M54.5 Low back pain M99.03 Segmental and somatic dysfunction of lumbar region M54.6 Pain in thoracic spine M99.02 Segmental and somatic dysfunction of thoracic region M54.2 Cervicalgia M99.01 Segmental and somatic dysfunction of cervical region M46.1 Sacroiliitis, not elsewhere classified M65.88 Other synovitis and tenosynovitis, other site Z79.891 halfway (current) use of opiate analgesic Office Visit 04/30/2017 1:00p Main Office as Champ Gibson, G89.29 Other chronic Of 03/11/13 DO, MPH pain M54.2 Cervicalgia M99.01 Segmental and somatic dysfunction of cervical region M54.6 Pain in thoracic spine M99.02 Segmental and somatic dysfunction of thoracic region M54.5 Low back pain M99.03 Segmental and somatic dysfunction of lumbar region M79.1 Myalgia Z79.891 halfway (current) use of opiate analgesic Office Visit 03/26/2017 1:00p Main Office as Champ Gibson, G89.29 Other chronic Of 03/11/13 DO, MPH pain M54.5 Low back pain M99.03 Segmental and somatic dysfunction of lumbar region M54.6 Pain in thoracic spine M99.02 Segmental and somatic dysfunction of thoracic region M54.2 Cervicalgia M99.01 Segmental and somatic dysfunction of cervical region Z79.891 halfway (current) use of opiate analgesic R53.83 Other fatigue Office Visit 02/19/2017 1:30p Main Office as Champ Gibson G89.29 Other chronic Of 03/11/13 DO, MPH pain M54.5 Low back pain M99.03 Segmental and somatic dysfunction of lumbar region M54.6 Pain in thoracic spine M99.02 Segmental and somatic dysfunction of thoracic region M54.2 Cervicalgia M99.01 Segmental and somatic dysfunction of cervical region Z79.891 halfway (current) use of opiate analgesic R53.83 Other fatigue Office Visit 01/15/2017 9:45a Main Office as Champ Gibson G89.29 Other chronic Of 03/11/13 DO, MPH pain M54.2 Cervicalgia M99.01 Segmental and somatic dysfunction of cervical region M54.6 Pain in thoracic spine M99.02 Segmental and somatic dysfunction of thoracic region M54.5 Low back pain M99.03 Segmental and somatic dysfunction of lumbar region R53.83 Other 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 Office Visit 12/25/2016 10:15a Main Office as Champ Gibson, G89.29 Other chronic Of 03/11/13 DO, MPH pain M54.5 Low back pain M99.03 Segmental and somatic dysfunction of lumbar region M54.6 Pain in thoracic spine M99.02 Segmental and somatic dysfunction of thoracic region M54.2 Cervicalgia M99.01 Segmental and somatic dysfunction of cervical region M54.16 Radiculopathy, lumbar region Office Visit 12/11/2016 1:00p Main Office as Champ Gibson, G89.29 Other chronic Of 03/11/13 DO, MPH pain M54.16 Radiculopathy, lumbar region M79.604 Pain in right leg M54.6 Pain in thoracic spine M99.02 Segmental and somatic dysfunction of thoracic region M54.2 Cervicalgia M99.01 Segmental and somatic dysfunction of cervical region M54.5 Low back pain M99.03 Segmental and somatic dysfunction of lumbar region 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 R53.83 Other fatigue Office Visit 11/06/2016 1:00p Main Office as Champ Gibson, G89.29 Other chronic Of 03/11/13 DO, MPH pain M54.16 Radiculopathy, lumbar region M79.604 Pain in right leg M54.6 Pain in thoracic spine M99.02 Segmental and somatic dysfunction of thoracic region M54.5 Low back pain M99.03 Segmental and somatic dysfunction of lumbar region M54.2 Cervicalgia M99.01 Segmental and somatic dysfunction of cervical region Z79.891 halfway (current) use of opiate analgesic R53.83 Other fatigue Office Visit 10/02/2016 10:00a Main Office as Champ Gibson [id number] Other chronic Of 03/11/13 DO, MPH pain M54.16 Radiculopathy, lumbar region M79.604 Pain in right leg R53.83 Other fatigue M54.5 Low back pain M99.03 Segmental and somatic dysfunction of lumbar region 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 Office Visit 09/04/2016 9:00a Main Office as Champ Gibson G89.29 Other chronic Of 03/11/13 DO, MPH pain M54.16 Radiculopathy, lumbar region M79.604 Pain in right leg M54.6 Pain in thoracic spine M54.2 Cervicalgia M54.5 Low back pain R53.83 Other fatigue Z79.891 halfway (current) use of opiate analgesic Office Visit 07/28/2016 4:00p Main Office as Champ Gibson G89.29 Other chronic Of 03/11/13 DO, MPH pain M54.16 Radiculopathy, lumbar region M79.604 Pain in right leg M54.2 Cervicalgia M54.6 Pain in thoracic spine M54.5 Low back pain 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 R53.83 Other fatigue Office Visit 06/26/2016 1:15p Main Office as Champ Gibson G89.29 Other chronic Of 03/11/13 DO, MPH pain M54.16 Radiculopathy, lumbar region M79.604 Pain in right leg M54.2 Cervicalgia M99.01 Segmental and somatic dysfunction of cervical region M54.6 Pain in thoracic spine M99.02 Segmental and somatic dysfunction of thoracic region M54.5 Low back pain M99.03 Segmental and somatic dysfunction of lumbar region R53.83 Other 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 Office Visit 05/25/2016 4:00p Main Office as Champ Gibson G89.29 Other chronic Of 03/11/13 DO, MPH pain M54.16 Radiculopathy, lumbar region M79.604 Pain in right leg 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 Office Visit 04/24/2016 10:00a Main Office as Champ Gibson G89.29 Other chronic Of 03/11/13 DO, MPH pain M54.16 Radiculopathy, lumbar region 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 Office Visit 03/24/2016 3:30p Main Office as Delma Rodríguez 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 M54.2 Cervicalgia M99.01 Segmental and somatic dysfunction of cervical region M54.6 Pain in thoracic spine M99.02 Segmental and somatic dysfunction of thoracic region M54.5 Low back pain M99.03 Segmental and somatic dysfunction of lumbar region M79.604 Pain in right leg M54.17 Radiculopathy, lumbosacral region Z71.89 Other specified counseling Z79.891 halfway (current) use of opiate analgesic Office Visit 02/21/2016 11:00a Main Office as Champ Gibson, G89.29 Other chronic Of 03/11/13 DO, MPH pain M54.5 Low back pain R53.83 Other fatigue Office Visit 01/24/2016 10:00a Main Office as Champ Gibson G89.29 Other chronic Of 03/11/13 DO, MPH pain M54.5 Low back pain M99.03 Segmental and somatic dysfunction of lumbar region M54.6 Pain in thoracic spine M99.02 Segmental and somatic dysfunction of thoracic region M54.2 Cervicalgia M99.01 Segmental and somatic dysfunction of cervical region M54.16 Radiculopathy, lumbar region M79.604 Pain in right leg 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 R53.83 Other fatigue G90.3 Multi-system degeneration of the autonomic nervous system Office Visit 01/08/2016 3:30p Main Office as Champ Gibson G89.29 Other chronic Of 03/11/13 DO, MPH pain M54.5 Low back pain M54.16 Radiculopathy, lumbar region M79.604 Pain in right leg Office Visit 12/30/2015 2:00p Main Office as Champ Gibson G89.29 Other chronic Of 03/11/13 DO, MPH pain M54.5 Low back pain M54.16 Radiculopathy, lumbar region M79.604 Pain in right leg G40.209 Local-rel symptc epi w cmplx prt seiz,not ntrct,w/o stat epi Z71.3 Dietary counseling and surveillance 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 Symptoms and complaints discussed and reviewed today. No significant changes in physical findings. Continue current medical pain management.M54.2 CervicalgiaComments:Chronic. Symptoms and complaints discussed and reviewed today. No significant changes in physical findings. Continue current medical pain management.M54.6 Pain in thoracic spineComments: Chronic.Symptoms and complaints discussed and reviewed today. No significant changes in physical findings. Continue current medical pain management.M54.5 Low back painComments:Chronic. Symptoms and complaints discussed and reviewed today.No changes in physical findings. Patient is stable and comfortable when current medical therapy is rendered.R53.83 Other fatigueComments:Symptoms and complaints discussed and reviewed today. No significant changes in physical findings. Continue current medical pain management. B12 injection administered after patient evaluated. 1ml IM for fatigue. (See Consent for injection-B12 document for lot number and expiration date.)Z79.891 terminal gauger supervisor ( current) use of opiate analgesicNew Labs:Urine Drug Screen, Ordered: Comments:Urine drug screen sample taken today to monitor opiate use and to monitor use of illicit substances.Will discuss results at next appointment.The following tests were ordered:6 AM, AMPH, ANGELICA, MARGOT, BUP, CARIS, COCM, COT, ETG , FENT, MCSHSG, OPI, OXY, PCP, TAPEN, XTSY, ZOLP. A urine drug test (UDT ) was ordered for this patient and collected on site today. Creatinine has been ordered as well for specimen validity, not for kidney function. Preliminary UDT results are not final and should not be used to determine patient care or plan of treatment. Initially a qualitative immunoassay screen will be done. Any inconsistent or positive findings will be further tested with a more comprehensive quantitative confirmation LCMS study. It is part of the treatment process of prescribing controlled substances and is considered standard of care.AllComments:All above symptoms and complaints discussed as well as diagnoses reviewed.Continue trial of opioid pain management - note changes below; injection therapy, osteopathic manipulation (OMT), PT / modalities, and consults as needed to manage chronic pain.Side effects discussed ; anticipatory guidance given. Patient clearly understands and agrees with all medical treatments and suggestions. 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 Activity as toleratedContinue with PCP
[2018-07-13 18:03] VITALS: BP 141/93
--- NOTE | 2018-07-13 18:35 | UC ---
Dental HPI - HPI Summary HPI Summary: 37-year-old male comes in with chief complaint of dental pain and gingival swelling. This started several days ago the right lower area. Hurts more when he chews on it. Less pain when he is not biting. No fevers or chills. He has a dental appointment on July 21, 2018. - History of Current Complaint Chief Complaint: UCDentalProblem Stated Complaint: TOOTH COMP Time Seen by Provider: 07/13/18 18:27 Pain Intensity: 8 - Allergies/Home Medications Allergies/Adverse Reactions: Allergies Allergy/AdvReac Type Severity Reaction Status Date / Time raw onions Allergy See Comment Uncoded 07/13/18 18:04 Home Medications: Home Medications Lisinopril 5 mg PO QPM 07/13/18 [History Confirmed 07/13/18] PMH/Surg Hx/FS Hx/Imm Hx Previously Healthy: Yes Neurological History: Seizures - Surgical History Surgical History: Yes Surgery Procedure, Year, and Place: TONSILLECTOMY, pacemaker 10/2017. umbilical hernia 07/2017 - Family History Known Family History: Positive: Cardiac Disease, Hypertension - Social History Alcohol Use: Occasionally Alcohol Amount: BEER ONCE A MONTH Substance Use Type: Excessive Caffeine, Prescribed Substance Use Comment - Amount & Last Used: monster drinks, 5 hr energy, sodas, coffee Smoking Status (MU): Heavy Every Day Tobacco Smoker Type: Cigarettes Amount Used/How Often: 10 CIGS PER DAY Length of Time of Smoking/Using Tobacco: 19 YRS Have You Smoked in the Last Year: Yes When Did the Patient Quit Smoking/Using Tobacco: quit 12/14/15 Household Exposure Type: Cigarettes Review of Systems All Other Systems Reviewed And Are Negative: Yes Constitutional: Positive: Negative Skin: Positive: Negative Eyes: Positive: Negative ENT: Positive: Dental Pain Respiratory: Positive: Negative Cardiovascular: Positive: Negative Gastrointestinal: Positive: Negative Motor: Positive: Negative Neurovascular: Positive: Negative Musculoskeletal: Positive: Negative Neurological: Positive: Negative Psychological: Positive: Negative Is Patient Immunocompromised?: No Physical Exam Triage Information Reviewed: Yes Appearance: Well-Appearing, No Pain Distress, Well-Nourished Vital Signs: Initial Vital Signs Temp 98.1 F 07/13/18 17:56 Pulse 71 07/13/18 17:56 Resp 22 07/13/18 17:56 BP 141/93 07/13/18 17:56 Pulse Ox 100 07/13/18 17:56 Vital Signs Reviewed: Yes Eye Exam: Normal Eyes: Positive: Conjunctiva Clear ENT: Positive: Uvula midline. Negative: Tonsillar swelling, Tonsillar exudate, Muffled voice, Hoarse voice Dental: Positive: Gross Decay/Caries @ Neck: Positive: Supple Respiratory: Positive: Lungs clear, Normal breath sounds, No respiratory distress Cardiovascular: Positive: RRR Musculoskeletal Exam: Normal Musculoskeletal: Positive: Strength Intact, ROM Intact Neurological Exam: Normal Neurological: Positive: Alert, Muscle Tone Normal Psychological Exam: Normal Psychological: Positive: Normal Response To Family, Age Appropriate Behavior Skin Exam: Normal Dental Complaint Course/Dx - Differential Dx/Diagnosis Provider Diagnosis: Dental infection Discharge - Sign-Out/Discharge Documenting (check all that apply): Patient Departure All imaging exams completed and their final reports reviewed: No Studies - Discharge Plan Condition: Stable Disposition: HOME Prescriptions: Amoxicillin PO (*) [Amoxicillin 875 MG (*)] 875 mg PO BID #20 tab Patient Education Materials: Toothache (ED) Referrals: Alfonso Linda MD [Primary Care Provider] - Additional Instructions: FOLLOW UP WITH YOUR DENTIST. GET RECHECKED SOONER IF YOUR CONDITION WORSENS OR ANY QUESTIONS OR CONCERNS. - Billing Disposition and Condition Condition: STABLE Disposition: Home
== END 2018-07-13 18:45 | disposition home or self-care (01) ==
LOC: UCCORT 17:42
DX: K04.7 Periapical abscess without sinus (principal); F17.210 Nicotine dependence, cigarettes, uncomplicated
CPT/HCPCS: 99212; G0463